=== PATIENT | female | born 1970 | race Caucasian/White ===

== ENCOUNTER 2017-01-18 16:44 | Emergency (ER) | payer OTHER ==
[~2017-01-18] VITALS: Ht 172.7 cm; Wt 90.7 kg
[2017-01-18] MEDS ORDERED: LEVOTHYROXINE50 MCG PO (16:47)
[2017-01-18] MEDS ORDERED: ALPRAZOLAM0.5 M4 PO (16:47)
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
[2017-01-18 19:51] VITALS: BP 150/82
== END 2017-01-18 19:56 ==
LOC: ERH 16:44
DX: S09.90XA Unspecified injury of head, initial encounter (principal); V49.40XA Driver injured in collision with unspecified motor vehicles in traffic accident, initial encounter
CPT/HCPCS: 82951; 82952; 81025